=== PATIENT | female | born 1950 | race Caucasian/White ===

== ENCOUNTER → 2020-02-15 | Outpatient (CLI) | payer OTHER | LOC: MRI 09:11 → BC 09:11 | PROVIDERS: ATTEND Nurse Practitioner | DX: Z12.31 Encounter for screening mammogram for malignant neoplasm of breast (principal); R51 Headache; R26.9 Unspecified abnormalities of gait and mobility; R42 Dizziness and giddiness; G93.2 Benign intracranial hypertension; I10 Essential (primary) hypertension ==

== ENCOUNTER → 2020-03-22 | Outpatient (CLI) | payer OTHER | LOC: CAT 13:19 | DX: Z82.49 Family history of ischemic heart disease and other diseases of the circulatory system (principal) ==

== ENCOUNTER → 2020-08-28 | Outpatient (CLI) | payer OTHER ==
[2020-08-28 09:40] LABS: CREATININE 1.3 mg/dL (0.6-1.0)
== END ==
LOC: CAT 09:09
PROVIDERS: ATTEND Family Medicine
DX: K57.30 Diverticulosis of large intestine without perforation or abscess without bleeding (principal); R19.5 Other fecal abnormalities

== ENCOUNTER → 2020-10-11 | Outpatient (CLI) | payer OTHER ==
[2020-10-11 08:30] LABS: CREATININE 1.4 mg/dL (0.6-1.0)
== END ==
LOC: CAT 07:45
PROVIDERS: ATTEND Nurse Practitioner
DX: K57.30 Diverticulosis of large intestine without perforation or abscess without bleeding (principal); R16.0 Hepatomegaly, not elsewhere classified; M48.061 Spinal stenosis, lumbar region without neurogenic claudication; M47.816 Spondylosis without myelopathy or radiculopathy, lumbar region

== ENCOUNTER → 2021-04-10 | Outpatient (CLI) | payer OTHER ==
[~2021-04-10] MED LIST: ASA81BEC PO; ATORVASTATIN CA20 MG PO; BIOTIN5000 MC1 PO; COLACE 100 MG100 MG PO; GLUCOPHAGE XR750 MG PO; HYDROCODON-ACE1 EAC7 PO; LISINOPRIL-HCT1 EAC2 PO; MIRALAX17 GM PO; PROTONIX40 M2 PO; RENAL-VITE TAB0.8 MG PO; SERTRALINE HCL100 MG PO; SUPER B COMPLE1 EAC2 PO; TOPAMAX 25 MG T25 M1 PO; VITAMIN C1000 MG PO; VITAMIN D3125 MC2 PO; WELLBUTRIN SR150 MG PO; ZINC50 M1 PO
== END ==
LOC: NUC 08:34
PROVIDERS: ATTEND Surgery
DX: R19.00 Intra-abdominal and pelvic swelling, mass and lump, unspecified site (principal)

== ENCOUNTER → 2021-05-02 | Outpatient (CLI) | payer OTHER | LOC: LAB 09:23 | PROVIDERS: ATTEND Student in an Organized Health Care Education/Training Program | DX: Z01.812 Encounter for preprocedural laboratory examination (principal); Z20.822 Contact with and (suspected) exposure to COVID-19 ==

== ENCOUNTER 2021-05-03 06:15 | Day surgery (SDC) | payer OTHER ==
[~2021-05-03] VITALS: Ht 170.2 cm; Wt 90.7 kg
[~2021-05-03 06:15] MED LIST changes: -COLACE 100 MG100 MG PO; -HYDROCODON-ACE1 EAC7 PO; -MIRALAX17 GM PO
[2021-05-03 07:11] VITALS: BP 119/65
--- NOTE | 2021-05-03 09:18 | EKG ---
[address] [address] ELECTROCARDIOGRAM REPORT Name: FARHAD BENJAMIN Room #: 150-2 [facility] M.R.#: [id number] Admission: 05/03/21 Attend Phys: Nas Driver MD Discharge: Date of : 48 Report #: [id number] [facility] Test Date: 2021-05-03 Test Time: 06:53:33 Pat Name: FARHAD BENJAMIN Department: Room: 150 2 Gender: F Shower Room Attendant: PRIYA : 1950 Requested By: Tanvir Hall Order Number: [id number] MD: Aman Quevedo Measurements Intervals [place] Rate: 71 P: 46 VT: 164 QRS: 8 QRSD: 101 T: 57 QT: 407 QTc: 443 Interpretive Statements Sinus rhythm No previous ECG available for comparison Electronically Signed On 05-03-2021 9:17:26 CDT by Aman Quevedo [email or web address] <ELECTRONICALLY SIGNED> By: Aman Quevedo MD 05/03/21 [id number] [id number] Aman Quevedo MD /EPI
[2021-05-03] MEDS ORDERED: HYDROCODON-ACE1 EAC7 PO (09:41)
[2021-05-03] MEDS ORDERED: MIRALAX17 GM PO (09:42)
[2021-05-03] MEDS ORDERED: COLACE 100 MG100 MG PO (09:42)
[2021-05-03 09:50] VITALS: BP 119/65
== END 2021-05-03 10:40 | disposition home or self-care (01) ==
LOC: OR 06:15 → TBA 06:16 → OR 07:05
PROVIDERS: ATTEND Surgery
DX: R10.9 Unspecified abdominal pain (principal); K46.9 Unspecified abdominal hernia without obstruction or gangrene; I10 Essential (primary) hypertension; E78.00 Pure hypercholesterolemia, unspecified; G43.909 Migraine, unspecified, not intractable, without status migrainosus; F32.9 Major depressive disorder, single episode, unspecified; F41.9 Anxiety disorder, unspecified; E11.9 Type 2 diabetes mellitus without complications; K21.9 Gastro-esophageal reflux disease without esophagitis; Z98.890 Other specified postprocedural states; Z79.899 Other long term (current) drug therapy; Z85.828 Personal history of other malignant neoplasm of skin; Z85.820 Personal history of malignant melanoma of skin
CPT/HCPCS: 50010; 50101; 50386; 50411; 50555; 52265; 52266; 53307; 53310; 54118; 56462; 56526; 58574; 62110; 62900; 70005

== ENCOUNTER → 2021-05-17 | Outpatient (CLI) | payer OTHER ==
[~2021-05-17] MED LIST changes: +COLACE 100 MG100 MG PO; +HYDROCODON-ACE1 EAC7 PO; +MIRALAX17 GM PO
== END ==
LOC: RAD 12:25
PROVIDERS: ATTEND Family Medicine
DX: Z12.31 Encounter for screening mammogram for malignant neoplasm of breast (principal)

== ENCOUNTER → 2021-06-28 | Outpatient (CLI) | payer OTHER ==
[2021-06-28 11:23] LABS: CREATININE 1.3 mg/dL (0.6-1.0)
== END | disposition home or self-care (01) ==
LOC: MRI 09:19
PROVIDERS: ATTEND Psychiatry & Neurology Neurology
DX: R93.0 Abnormal findings on diagnostic imaging of skull and head, not elsewhere classified (principal)